=== PATIENT | male | born 1990 ===

== ENCOUNTER 2020-07-09 22:31 | Emergency (ER) | payer SELFPAY ==
--- NOTE | 2020-07-09 23:14 | Event Note ---
ED Screening Note Date of service: 07/09/20 Time: 23:13 ED Screening Note: 30-year-old male presents to the emergency room for 1 day history of nausea and vomiting having tingling in his hands and sweating. This initial assessment/diagnostic orders/clinical plan/treatment(s) is/are sub ject to change based on patients health status, clinical progression and re- assessment by fellow clinical providers in the ED. Further treatment and workup at subsequent clinical providers discretion. Patient/guardian urged not to elope from the ED as their condition may be serious if not clinically assessed and managed. Initial orders include: CBC CMP EKG
[2020-07-09 23:58] LABS: Alanine Aminotransferase 100 units/L (7-56); Albumin 4.6 g/dL (3.9-5); BUN/Creatinine Ratio 17; Blood Urea Nitrogen 15 mg/dL (9-20); Hemolysis Index 10
[2020-07-09 23:59] LABS: Basophils % (Auto) 0.6 % (0.0-1.8); Eosinophils # (Auto) 0.1 K/mm3 (0.0-0.4); Eosinophils % (Auto) 1.7 % (0.0-4.3); Hemoglobin 15.5 gm/dl (11.8-15.2); Lymphocytes # (Auto) 2.8 K/mm3 (1.2-5.4); Lymphocytes % (Auto) 42.2 % (13.4-35.0); Mean Corpuscular HGB Conc 35 % (32-34); Mean Corpuscular Volume 89 fl (84-94); Monocytes # (Auto) 0.5 K/mm3 (0.0-0.8); Monocytes % (Auto) 7.9 % (0.0-7.3); Platelet Count 356 K/mm3 (140-440); Red Blood Count 5.04 M/mm3 (3.65-5.03); Red Cell Distribution Width 13.7 % (13.2-15.2)
--- NOTE | 2020-07-10 01:43 | Emergency Department Report ---
ED General Adult HPI - General Chief complaint: Nausea/Vomiting/Diarrhea Stated complaint: DIZZINESS/NUMBNESS IN HANDS Time Seen by Provider: 07/10/20 01:29 Source: patient Mode of arrival: Ambulatory Limitations: No Limitations - History of Present Illness Initial comments: Patient is 30 years old male with no significant past medical history. Patient presented to the ER complaining of 3-day history of nausea, vomiting and watery diarrhea. Patient denied any fever or chills. Patient stated that he started taking some antidiarrheal medicine yesterday and since then he started having some shaking all over. Patient denied any abdominal pain. No chest pain or shortness of breath. - Related Data Allergies Allergy/AdvReac Type Severity Reaction Status Date / Time No Known Allergies Allergy Verified 07/09/20 23:09 ED Review of Systems ROS: Stated complaint: DIZZINESS/NUMBNESS IN HANDS Other details as noted in HPI Comment: All other systems reviewed and negative Constitutional: denies: chills, fever Respiratory: denies: cough, shortness of breath, SOB with exertion Cardiovascular: denies: chest pain, palpitations Gastrointestinal: nausea, vomiting, diarrhea. denies: abdominal pain ED Past Medical Hx - Past Medical History Previous Medical History?: No - Surgical History Past Surgical History?: No - Social History Smoking Status: Never Smoker Substance Use Type: Alcohol ED Physical Exam - General Limitations: No Limitations General appearance: alert, in no apparent distress - Head Head exam: Present: atraumatic, normocephalic, normal inspection - Eye Eye exam: Present: normal appearance, PERRL - ENT ENT exam: Present: normal exam, normal orophraynx, mucous membranes moist - Neck Neck exam: Present: normal inspection, full ROM. Absent: tenderness, meningismus - Respiratory Respiratory exam: Present: normal lung sounds bilaterally - Cardiovascular Cardiovascular Exam: Present: regular rate, normal rhythm, normal heart sounds - GI/Abdominal GI/Abdominal exam: Present: soft, normal bowel sounds. Absent: distended, tenderness, guarding, rebound, rigid, organomegaly, mass, bruit, pulsatile mass, hernia - Extremities Exam Extremities exam: Present: normal inspection, full ROM, normal capillary refill. Absent: tenderness, pedal edema, joint swelling, calf tenderness - Back Exam Back exam: Present: normal inspection, full ROM. Absent: CVA tenderness (R), CVA tenderness (L) - Neurological Exam Neurological exam: Present: alert, oriented X3, CN II-XII intact - Psychiatric Psychiatric exam: Present: normal mood - Skin Skin exam: Present: warm, intact, normal color ED Course Vital Signs 07/09/20 23:04 Temperature 98.0 F Pulse Rate 75 Respiratory 17 Rate Blood Pressure 147/109 O2 Sat by Pulse 98 Oximetry ED Medical Decision Making - Lab Data Result diagrams: 07/09/20 23:15 07/09/20 23:15 - Medical Decision Making Patient is 30 years old male with no significant past medical history. Patient presented to the ER complaining of 3-day history of nausea, vomiting and watery diarrhea. Patient denied any fever or chills. Patient stated that he started taking some antidiarrheal medicine yesterday and since then he started having some shaking all over. Patient denied any abdominal pain. No chest pain or shortness of breath. Labs reviewed and is unremarkable. Patient advised to discontinue antidiarrhea medication. Advised patient to increase p.o. intake. Patient given prescription for Zofran and advised to follow-up with his primary doctor in the next 2 to 3 days and to return to the ER if he develop any new symptoms. Critical care attestation.: If time is entered above; I have spent that time in minutes in the direct care of this critically ill patient, excluding procedure time. ED Disposition Clinical Impression: Acute nausea with nonbilious vomiting, Acute diarrhea Disposition: -01 TO HOME OR SELFCARE Is pt being admited?: No Condition: Stable Instructions: Diarrhea, Adult, Nausea and Vomiting, Adult Referrals: BRIAN MARIN MD [Primary Care Provider] - 3-5 Days
[2020-07-10 02:19] VITALS: BP 147/82
== END 2020-07-10 02:15 | disposition home or self-care (01) ==
LOC: ED 22:31
DX: R11.2 Nausea with vomiting, unspecified (principal); R19.7 Diarrhea, unspecified; R42 Dizziness and giddiness
CPT/HCPCS: 36415; 80053; 85025; 99283